=== PATIENT | female | born 1990 | race Caucasian/White ===

== ENCOUNTER 2018-01-30 22:37 | Emergency (ER) | payer OTHER ==
[~2018-01-30] VITALS: Ht 154.9 cm; Wt 83.5 kg
[2018-01-30] MEDS ORDERED: EPINEPHRINE 1 MG/ML, 1ML SQ ONE (23:30)
[2018-01-30] MEDS ORDERED: FAMOTIDINE 20 MG TABLET PO ONE (23:30)
[2018-01-30] MEDS ORDERED: DIPHENHYDRAMINE 25 MG CAPSULE PO ONE (23:30)
[2018-01-30] MEDS ORDERED: FAMOTIDINE 20 MG TABLET ONE (23:44)
[2018-01-30] MEDS ORDERED: EPINEPHRINE 1 MG/ML, 1ML ONE (23:44)
[2018-01-30] MEDS ORDERED: DIPHENHYDRAMINE 25 MG CAPSULE ONE (23:45)
[2018-01-31 00:23] VITALS: BP 127/80
[2018-01-31] MEDS ORDERED: ONDANSETRON ODT 4 MG ONE (00:25)
[2018-01-31] MEDS ORDERED: ACETAMINOPHEN 325 MG TABLET ONE (00:25)
[2018-01-31] MEDS ORDERED: ACETAMINOPHEN 325 MG TABLET PO ONE (00:30)
[2018-01-31] MEDS ORDERED: ONDANSETRON ODT 4 MG PO ONE (00:30)
== END 2018-01-31 00:54 | disposition home or self-care (01) ==
LOC: ED 23:59
DX: L50.9 Urticaria, unspecified (principal); L20.84 Intrinsic (allergic) eczema; J45.909 Unspecified asthma, uncomplicated
CPT/HCPCS: 93005; 96372; 99283; J0171; J7512; Q0162; Q0163